=== PATIENT | female | born 1995 | race Caucasian/White ===

== ENCOUNTER 2021-01-21 23:45 | Emergency (ER) | payer BC ==
[2021-01-21] MEDS ORDERED: Ondansetron 4 MG/2 ML SDV IVPUSH ONE (23:50)
[2021-01-21] MEDS ORDERED: Ketorolac 30 MG/ML SDV IVPUSH ONE (23:50)
[2021-01-22] MEDS ORDERED: Sodium Chloride 0.9% 10 ML Syringe FLUSH PRN (00:23)
[2021-01-22 01:17] VITALS: BP 145/77; PULSE 92
--- NOTE | 2021-01-22 14:23 | ER ---
DATE SEEN: 01/21/2021 CHIEF COMPLAINT: Syncope. 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 She was working when she visibly became pale, complained of chest pressure and then vomited. She then passed out for few seconds. This happened while she was seated at a desk. It was witnessed by 2 of our nurses. She complains of a headache that is massive, chest pressure, which has improved. Denies any fever. She was previously healthy. PAST MEDICAL HISTORY: Hypertension. SOCIAL HISTORY: Does not smoke or drink. MEDICATIONS: Reviewed. PHYSICAL EXAMINATION: VITAL SIGNS: Blood pressure initially 153/107, repeat was 145/77, temp 97.7, and pulse 92. EARS, NOSE, AND THROAT: Negative. HEAD: Atraumatic. CHEST: Clear. CARDIOVASCULAR: Normal. MENTAL STATUS: Alert. NEUROLOGIC: Nonfocal. LABORATORY DATA: White cell count 11.2, sodium is 137, potassium is 3.3. She had negative test and negative troponin. She also had a CT of the chest, which was negative. EKG which was reviewed was normal sinus rhythm. IMPRESSION: 1. Syncope. 2. Headache. 3. Hypertension. PLAN: I was unable to explain her symptoms. She did feel better after Ketorolac and Zofran and was discharged home. She was on the monitor for more than an hour and was normal sinus rhythm. Her symptoms had completely resolved by the time of discharge. She is advised to see her PCP, Dr. Flaherty in 24 hours. Return to the ED with any worsening symptoms. /[id number] [place]DRE[place]/GEOV[place]
== END 2021-01-22 01:20 | disposition home or self-care (01) ==
LOC: FB.ED 23:45
DX: I10 Essential (primary) hypertension (principal); R55 Syncope and collapse
CPT/HCPCS: 36415; 70450; 80053; 84484; 84702; 85025; 85379; 93005; 96374; 96375; 99285-25; J1885; J2405